=== PATIENT | female | born 1940 | race Caucasian/White ===

== ENCOUNTER → 2016-12-10 | Outpatient (CLI) | payer OTHER ==
[2015-06-13 14:19] VITALS: BP 129/70; PULSE 72
[~2016-12-10] MED LIST: ANAS1TAB6 PO; ASPI81TA28 PO; ATEN50TA PO; CITA10TA4 PO; FENO160T PO; GABA-113 PO; GLC/500 PO; INSDGI SC; LISI10TA PO; LOSA1TAB38 PO; SITA50TA5 PO
[2016-12-10 12:58] VITALS: BP 134/67; PULSE 76; TEMP 36.5; O2SAT 94
--- NOTE | 2016-12-10 14:28 | Radiation Oncology Follow-Up ---
Radiation Oncology Follow-Up Date of Visit December 10, 2016. Reason For Visit Annual follow-up Radiation Completion Date APBI 05/01/15 Diagnosis (1) Malignant neoplasm of lower-inner quadrant of female breast Status: Resolved Onset Date: 02/27/2015 Histology Subtype: ductal Stage: l (A) Permanent Comment: Abnormal left breast mammogram Status post core needle biopsy 02/27/2015 revealing invasive ductal carcinoma grade 1 Estrogen receptor positive, progesterone receptor positive, HER-2/los negative Status post partial mastectomy and sentinel lymph node biopsy 03/13/2015 Pathologic stage [id number] Status post completion of radiation therapy 05/01/2015 received 3850 cGy utilizing accelerated partial breast treatment Last Edited By: Allegra Jin on May 04, 2015 15:39 History of Present Illness Ms. Ahmadi is a 74-year-old female without a family history of breast cancer. She underwent periodic screening mammograms. On 01/13/2014 bilateral digital mammography was performed. The right breast was benign in appearance. In the inner quadrant of the left breast close to the chest wall a mass had developed compared to the prior study of 2009. This was somewhat ill-defined and suspicious because of its configuration and density. A correlate of ultrasound was recommended. The lesion measured 1.2 cm. On 02/09/2015 patient underwent a ultrasound of the left breast. This showed a 1.1 x 1.1 x 0.7 cm ill-defined irregular shaped solid mass at the 8 to 9 o'clock position near the sternal border at the chest wall region of the left breast. Several lymph nodes are present in the axilla. This was suspicious and correlated with the mammographic findings and was suspicious for malignancy. Unilateral left breast views were obtained also on February 09 including magnification views. At the 9 o'clock position near the chest wall and ill-defined lesion located just beneath the skin surface measuring approximate 1 cm in greatest dimension was identified and correlated with the ultrasound findings. Surgical consultation was recommended. On 02/27/2015 patient underwent a biopsy of the left breast mass. This revealed an infiltrating ductal carcinoma grade 1 of 3 with no lymphovascular or perineural invasion seen. Estrogen receptors were positive, progesterone receptors were positive and HER-2/los overexpression was equivocal (2+). Ki-67 proliferation index was 5-10%. The lesion was negative by FISH analysis. Case : [id number]. The patient was seen by Dr. Vasquez who discussed treatment options with the patient. His physical exam identified a 1.5 cm firm mass in the far medial left breast at the 9 o'clock position with some slight pull on the skin. A 2 cm palpable node in the central left axilla was identified and a 1.5 cm palpable node in the right axilla was identified. The patient wished to proceed with breast conserving therapy. She therefore agreed to a partial mastectomy and sentinel lymph node biopsy. On 03/14/2015 patient underwent a left partial mastectomy and sentinel node biopsy. The left partial mastectomy specimen confirmed residual infiltrating ductal carcinoma grade 1 of 3 measuring 1.5 x 1.0 x 1.0 cm. There was evidence of low-grade DCIS solid without necrosis. The margins were clear. There was no lymphovascular or perineural invasion identified. The solitary sentinel lymph node was negative for metastatic disease. Final AJCC staging wasT1c pN0(i -) pN0(i-) ER positive GA positive HER-2/los negative. The patient returned for follow-up with Dr. Vasquez and had the sutures removed. She is recovering well. She underwent a CT simulation was found to be a good candidate for accelerated partial breast treatment. She was treated from 04/25/2015 to 05/01/2015. She received 3850 cGy. Interim History She's been doing well over this past year regards to her prior breast treatment. She denies any masses or tenderness and no change in the axilla. She has had no swelling of her arm. She is up-to-date on mammography. She had a mammogram 04/21/2016. This showed probable benign nodule in the right breast. 6 months follow-up was recommended. BI-RADS Category 3. On 2016 she had a right breast ultrasound. This showed stable 7 mm lesion at 12: 00 in the right breast, most consistent with an incidental cyst, resume annual digital mammography which we do April 2017. She continues regular examinations with Dr. Vasquez. Unfortunately she developed herpes zoster 8 months ago. This affected the right posterior neck. She has had ongoing post herpetic neuralgia. Multiple medications have been tried. She has had nerve blocks placed on 4 occasions. She continues to have intermittent severe pain. She is following with the primary care physician. She is on gabapentin. She stated that this is being decreased in order to try a different medication. We discussed the use of Capsicin. She has tried this and it did not work. Allergies Coded Allergies: Adhesives (Unverified Allergy, Mild, erythema, pruritis, 04/04/15) Home Medications Scheduled Anastrozole (Anastrozole), 1 TAB PO DAILY Aspirin (Aspirin Ec), 81 MG PO DAILY Atenolol (Tenormin), 1 TAB PO DAILY Citalopram Hydrobromide (Citalopram Hydrobromide), 1 TAB PO DAILY Fenofibrate (Tricor), 160 MG PO DAILY Gabapentin (Neurontin), 300 MG PO BID Insulin Glargine (Lantus), 60 UNITS SC QPM Losartan Potassium (Cozaar), 1 TAB PO DAILY Metformin Hcl (Glucophage), 500 MG PO BID Sitagliptin-Metformin Hcl (Janumet), 1 TAB PO BID Review of Systems Gastrointestinal: Symptoms: Diarrhea GI Comments: Diarrhea once a week ever since having cystocele/rectocele repair; Oral: Symptoms: No Problems Respiratory: Symptoms: WNL Other Respiratory: Residual dry cough/throat clearing since having a cold 1 month ago Urinary: Symptoms: WNL Comments: Urinary stress incontinence related to failed bladder tacking; Skin: Symptoms: No Problems Other Skin Symptoms: Residual avalos color of skin from RT in her cleavage; Breast: Right Upper Arm Measurement: 26.0 Right Mid Arm Measurement: 24.3 Right Wrist Measurement: 17.0 Left Upper Arm Measurement: 24.8 Left Mid Arm Measurement: 23.0 Left Wrist Measurement: 16.5 Arm Dominence: Right Physical Exam Vital Signs Date Time Temp Pulse Resp B/P Pulse Ox O2 Delivery O2 Flow Rate FiO2 12/10/16 12:58 36.5 76 20 134/67 94 Pain: Pain Location: None Patient Pain Scale: 0 - 10 Initial Pain Intensity: 0.0 Fatigue: None General Appearance: no apparent distress Eyes: normal inspection, EOMI ENT: normal ENT inspection, hearing grossly normal Neck: no adenopathy, thyroid normal, + pertinent finding (tenderness to the skin of the right posterior neck. Mild scarring from prior herpes zoster.) Respiratory/Chest: lungs clear, no respiratory distress, no accessory muscle use Breast: Breast examination reveals well-healed incisions of the left breast. There are no masses or tenderness no axillary adenopathy. There are no skin retractions or nipple changes. She has no telangiectasia. Using the [place] score cosmesis she has a excellent outcome. The right breast showed no masses or tenderness no axillary adenopathy. Cardiovascular: regular rate, rhythm, no gallop, no murmur Extremities: no pedal edema Neurologic/Psychiatric: no motor/sensory deficits, alert, normal mood/affect Skin: warm/dry Lymphatic: no adenopathy Additional Studies Mammography as reviewed above. Assessment & Plan Continue with scheduled mammography. Continue follow-up with Dr. Vasquez and her primary care physician. There are plans for a different medication to try for her postherpetic neuralgia. I did suggest lidocaine patches. She'll discuss that with the primary care physician. She also is going to try application of heat or cold to see if that makes a difference in the discomfort of her neck. We asked her to return to our office in 1 year. She may call if she has any questions or concerns in the interim. Total Time In Follow-Up I spent 20 minutes speaking to the patient and performing examination. I spent 15 minutes reviewing information and completing this note. Copy To Jordan Vasquez M.D.; Nilay Garces Problem Qualifiers (1) Malignant neoplasm of lower-inner quadrant of female breast: Estrogen receptor status: positive Laterality: left Qualified Codes: C50.312 - Malignant neoplasm of lower-inner quadrant of left female breast; Z17.0 - Estrogen receptor positive status [ER+]
== END | disposition home or self-care (01) ==
LOC: C.ONC 12:53
PROVIDERS: ATTEND Physician Assistant Medical
DX: Z08 Encounter for follow-up examination after completed treatment for malignant neoplasm (principal); Z92.3 Personal history of irradiation; Z85.3 Personal history of malignant neoplasm of breast